=== PATIENT | female | born 1985 | race Caucasian/White ===

== ENCOUNTER 2016-09-06 12:18 | Emergency (ER) | payer OTHER ==
--- NOTE | 2016-09-06 13:18 | UC ---
Throat Pain/Nasal Edwin HPI - HPI Summary HPI Summary: SORE THROAT X 5 DAY, NO FEVER, + NASAL CONGESTION, COUGH HER KIDS WERE DX WITH STREP THROAT RECENTLY - History of Current Complaint Chief Complaint: UCGeneralIllness Stated Complaint: SORE THROAT Time Seen by Provider: 09/06/16 13:12 Hx Obtained From: Patient Hx Last Menstrual Period: DECEMBER 2014, DOES NOT HAVE REG PERIODS-HAS PCOS Onset/Duration: Gradual Onset, Lasting Days - 5, Still Present Severity: Moderate Cough: Nonproductive Associated Signs & Symptoms: Positive: Sinus Discomfort, Nasal Discharge. Negative: FB Sensation, Drooling, Fever, Vomiting - Allergies/Home Medications Allergies/Adverse Reactions: Allergies Allergy/AdvReac Type Severity Reaction Status Date / Time control pills Allergy Severe respiratory Uncoded 09/06/16 13:16 & rash Home Medications: Home Medications Acetaminophen [Acetaminophen Extra Stren] 1,000 mg PO Q6H PRN 09/06/16 [History Confirmed 09/06/16] Cetirizine* [ZyrTEC*] 10 mg PO DAILY 09/06/16 [History Confirmed 09/06/16] metFORMIN* [Glucophage*] 500 mg PO DAILY 09/06/16 [History Confirmed 09/06/16] PMH/Surg Hx/FS Hx/Imm Hx - Additional Past Medical History Additional PMH: HX OF SLE - Surgical History Surgical History: Yes Surgery Procedure, Year, and Place: D & C, pelvic cysts - Family History Known Family History: Positive: Cardiac Disease - Social History Alcohol Use: None Substance Use Type: None Smoking Status (MU): Never Smoked Tobacco - Immunization History Most Recent Influenza Vaccination: June 2016 Review of Systems Constitutional: Fatigue Skin: Negative Eyes: Negative ENT: Sore Throat, Nasal Discharge Respiratory: Cough Cardiovascular: Negative Gastrointestinal: Negative Genitourinary: Negative All Other Systems Reviewed And Are Negative: Yes Physical Exam Triage Information Reviewed: Yes Appearance: Well-Appearing, No Pain Distress, Well-Nourished Vital Signs: Initial Vital Signs Temp 98.2 F 09/06/16 13:12 Pulse 82 09/06/16 13:12 Resp 16 09/06/16 13:12 BP 120/76 09/06/16 13:12 Pulse Ox 99 09/06/16 13:12 Vital Signs Reviewed: Yes Eyes: Positive: Conjunctiva Clear ENT: Positive: Normal ENT inspection, Hearing grossly normal, Pharyngeal erythema, Nasal congestion, Nasal drainage, TMs normal Neck: Positive: Supple, Nontender, No Lymphadenopathy Respiratory: Positive: Chest non-tender, Lungs clear, Normal breath sounds Cardiovascular: Positive: RRR, No Murmur, Pulses Normal Abdominal Exam: Normal Abdomen Description: Positive: Soft Bowel Sounds: Positive: Present Skin Exam: Normal Throat Pain/Nasal Course/Dx - Differential Dx/Diagnosis Provider Diagnoses: PHARYNGITIS Discharge - Discharge Plan Condition: Stable Disposition: HOME Prescriptions: Amoxicillin (*) 875 mg PO BID #20 tab Patient Education Materials: Pharyngitis (ED) Forms: *Work Release Referrals: Yaima Flaherty [Primary Care Provider] - If Needed
[2016-09-06 17:14] VITALS: BP 120/76
== END 2016-09-06 13:20 | disposition home or self-care (01) ==
LOC: UCCORT 12:18
DX: J02.9 Acute pharyngitis, unspecified (principal); R09.81 Nasal congestion; R05 Cough; R53.83 Other fatigue
CPT/HCPCS: 99212; G0463

== ENCOUNTER 2016-10-07 09:27 | Emergency (ER) | payer OTHER ==
[2016-10-07 10:30] VITALS: BP 121/63
--- NOTE | 2016-10-07 11:08 | UC ---
Throat Pain/Nasal Edwin HPI - HPI Summary HPI Summary: Nasal & maxillary sinus congestion with ST, R ear pain/pressure starting about 6 days ago. Hx of sinusitis 1-2 x/year, does not see ENT for this. Is not coughing, not able to blow anything out of nose. Has tried neti pot, antihistamines, decongestants without relief. - History of Current Complaint Chief Complaint: UCRespiratory Stated Complaint: SINUSES Time Seen by Provider: 10/07/16 10:43 Hx Obtained From: Patient Hx Last Menstrual Period: PCOS, 3 months ago ?: No Onset/Duration: Gradual Onset, Lasting Days Severity: Moderate Cough: None Associated Signs & Symptoms: Positive: Sinus Discomfort. Negative: Nasal Discharge - Epiglottits Risk Factors Epiglottis Risk Factors: Negative - Allergies/Home Medications Allergies/Adverse Reactions: Allergies Allergy/AdvReac Type Severity Reaction Status Date / Time control pills Allergy Severe respiratory Uncoded 10/07/16 10:31 & rash Home Medications: Home Medications Phentermine HCl 0.5 tab PO DAILY 10/07/16 [History Confirmed 10/07/16] PMH/Surg Hx/FS Hx/Imm Hx Previously Healthy: No - Pt has lupus - Surgical History Surgical History: None Surgery Procedure, Year, and Place: D & C, pelvic cysts - Family History Known Family History: Positive: Cardiac Disease - Social History Lives: With Family Alcohol Use: None Substance Use Type: None Smoking Status (MU): Never Smoked Tobacco - Immunization History Most Recent Influenza Vaccination: 08/2014 Review of Systems Constitutional: Negative Skin: Negative Eyes: Negative ENT: Other - sinus pain and pressure Respiratory: Negative Cardiovascular: Negative Gastrointestinal: Negative Genitourinary: Negative Motor: Negative Neurovascular: Negative Musculoskeletal: Negative Neurological: Negative Psychological: Negative All Other Systems Reviewed And Are Negative: Yes Physical Exam Triage Information Reviewed: Yes Appearance: Well-Appearing, Obese Vital Signs: Initial Vital Signs Temp 98.3 F 10/07/16 10:27 Pulse 94 10/07/16 10:27 Resp 16 10/07/16 10:27 BP 121/63 10/07/16 10:27 Pulse Ox 95 10/07/16 10:27 Vital Signs Reviewed: Yes Eye Exam: Normal Eyes: Positive: Conjunctiva Clear ENT: Positive: Pharynx normal, Nasal congestion, TMs normal. Negative: Tonsillar swelling, Tonsillar exudate Dental Exam: Normal Neck exam: Normal Neck: Positive: Supple, Nontender, No Lymphadenopathy Respiratory Exam: Normal Respiratory: Positive: Chest non-tender, Lungs clear, Normal breath sounds, No respiratory distress, No accessory muscle use Cardiovascular: Positive: RRR - high 90s on exam, No Murmur Musculoskeletal Exam: Normal Neurological Exam: Normal Psychological Exam: Normal Skin Exam: Normal Throat Pain/Nasal Course/Dx - Differential Dx/Diagnosis Provider Diagnoses: Acute maxillary sinusitis Discharge - Discharge Plan Condition: Stable Disposition: HOME Prescriptions: Azithromyxin TIMOTHY (NF) [Z-Timothy (Zithromax) 250 mg tabs #6] 2 tab PO .TODAY, THEN 1 DAILY #6 tab Patient Education Materials: Sinusitis (ED) Referrals: Yaima Flaherty [Primary Care Provider] - Additional Instructions: Make sure you follow up if you have persistent or worsening symptoms.
== END 2016-10-07 11:08 | disposition home or self-care (01) ==
LOC: UCCORT 09:27
DX: J01.00 Acute maxillary sinusitis, unspecified (principal); R09.81 Nasal congestion; E28.2 Polycystic ovarian syndrome; M32.9 Systemic lupus erythematosus, unspecified; E66.9 Obesity, unspecified; Z88.8 Allergy status to other drugs, medicaments and biological substances
CPT/HCPCS: 99212; G0463

== ENCOUNTER 2019-06-19 09:20 | Emergency (ER) | payer OTHER ==
[2019-06-19 10:09] VITALS: BP 111/48
--- NOTE | 2019-06-19 10:27 | UC ---
Throat Pain/Nasal Edwin HPI - HPI Summary HPI Summary: 34-year-old female who is 4 months presents with 2 week history of nasal congestion, sinus pressure, sore throat, and occasional nonproductive cough. States her symptoms did start improving after about a week but then over the last 4-5 days and started to worsen again. Reports intermittent fevers as high as 101 F. Yesterday developed some right ear pain. Her son is ill with similar symptoms. Has been taking Zyrtec and Mucinex with little relief in symptoms. Denies dysphagia, chest pain, shortness of breath, abdominal pain, nausea, vomiting, or diarrhea. - History of Current Complaint Chief Complaint: UCGeneralIllness Stated Complaint: SINUSES,FEVER,EARS Time Seen by Provider: 06/19/19 10:23 Hx Obtained From: Patient Hx Last Menstrual Period: PCOS, 3 months ago Pain Intensity: 6 - Allergies/Home Medications Allergies/Adverse Reactions: Allergies Allergy/AdvReac Type Severity Reaction Status Date / Time control pills Allergy Severe respiratory Uncoded 06/19/19 10:09 & rash PMH/Surg Hx/FS Hx/Imm Hx Other Endocrine History: PCOS - Surgical History Surgical History: None Surgery Procedure, Year, and Place: D & C, pelvic cysts - Family History Known Family History: Positive: Cardiac Disease - Social History Occupation: Unemployed Lives: With Family Alcohol Use: None Substance Use Type: None Smoking Status (MU): Never Smoked Tobacco - Immunization History Most Recent Influenza Vaccination: 08/2014 Review of Systems All Other Systems Reviewed And Are Negative: Yes Constitutional: Positive: Fever Skin: Negative: Rash Eyes: Negative: Drainage, Eye Redness ENT: Positive: Sore Throat, Ear Ache, Nasal Discharge, Sinus Congestion, Sinus Pain/Tenderness Respiratory: Positive: Cough. Negative: Shortness Of Breath Cardiovascular: Negative: Chest Pain Gastrointestinal: Negative: Abdominal Pain, Vomiting, Diarrhea, Nausea Genitourinary: Positive: Negative Musculoskeletal: Positive: Negative Neurological: Positive: Negative Is Patient Immunocompromised?: No Physical Exam - Summary Physical Exam Summary: GENERAL APPEARANCE: Well developed, well nourished, alert and cooperative, and appears to be in no acute distress. EYES: Conjunctiva clear. No drainage. EARS: External auditory canals and tympanic membranes clear, hearing grossly intact. NOSE: Moderate nasal congestion with mucosal erythema and edema. No nasal discharge. Frontal and maxillary sinus tenderness. THROAT: Pharyngeal cobblestoning. No tonsilar inflammation, swelling, exudate, or lesions. Uvula midline. NECK: Neck supple, non-tender without lymphadenopathy. CARDIAC: Normal S1 and S2. No S3, S4 or murmurs. Rhythm is regular. There is no peripheral edema, cyanosis or pallor. Extremities are warm and well perfused. Capillary refill is less than 2 seconds. Peripheral pulses intact. LUNGS: Clear to auscultation without rales, rhonchi, wheezing or diminished breath sounds. Cough not observed. ABDOMEN: Positive bowel sounds. Soft, nondistended, nontender. No guarding or rebound. No masses or hepatosplenomegally. MUSKULOSKELETAL: ROM intact to all extremities. No joint erythema or tenderness. Normal muscular development. Normal gait. SKIN: Skin normal color, texture and turgor with no lesions or eruptions. Triage Information Reviewed: Yes Vital Signs: Initial Vital Signs Temp 98.8 F 06/19/19 10:04 Pulse 76 06/19/19 10:04 Resp 16 06/19/19 10:04 BP 111/48 06/19/19 10:04 Pulse Ox 100 06/19/19 10:04 Vital Signs Reviewed: Yes Throat Pain/Nasal Course/Dx - Course Course Of Treatment: 34-year-old female who is 4 months presents with 2 week history of nasal congestion, sinus pressure, sore throat, and occasional nonproductive cough. States her symptoms did start improving after about a week but then over the last 4-5 days and started to worsen again. Reports intermittent fevers as high as 101 F. Yesterday developed some right ear pain. Her son is ill with similar symptoms. Has been taking Zyrtec and Mucinex with little relief in symptoms. Denies dysphagia, chest pain, shortness of breath, abdominal pain, nausea, vomiting, or diarrhea. Afebrile. Vital signs stable. Patient had moderate nasal congestion with mucosal erythema and edema, frontal and maxillary sinus tenderness, normal TMs, pharyngeal cobblestoning without tonsillar swelling or exudate, no cervical lymphadenopathy, clear bilateral breath sounds, and otherwise unremarkable exam. Based on her history of improving followed by worsening of symptoms as well as the duration of her symptoms I'm concerned she may be developing a secondary bacterial infection and will treat her with Augmentin and 875 mg twice a day 10 days as well as recommend symptomatic treatment. She is to follow up with her primary care provider in 3-5 days if symptoms are not improving. Anticipatory warning symptoms reviewed with the patient. Verbalizes understanding and agrees with Plan of Care. - Differential Dx/Diagnosis Differential Diagnosis/HQI/PQRI: Influenza, Mononucleosis, Otitis Media, Pharyngitis, Sinusitis, Tonsillitis, URI Provider Diagnosis: Acute sinusitis Discharge ED - Sign-Out/Discharge Documenting (check all that apply): Patient Departure All imaging exams completed and their final reports reviewed: No Studies - Discharge Plan Condition: Stable Disposition: HOME Prescriptions: Amoxicillin/Clavulanate TAB* [Augmentin TAB 875*] 875 mg PO BID #20 tab Fluticasone NASAL SPRAY 50MCG* [Flonase NASAL SPRAY 50MCG*] 2 spray BOTH NARES DAILY #1 btl Patient Education Materials: Sinusitis (ED) Forms: *Work Release Referrals: Yaima Flaherty [Primary Care Provider] - 3 Days Additional Instructions: Your history and exam are consistent with a sinus infection. Considering the duration of your symptoms I am concerned that he may have developed a secondary bacterial infection we'll start you on an antibiotic. Start Augmentin 875 mg 1 tablet twice daily for 10 days. Take with food to avoid upset stomach. Be sure to finish the entire course even if feeling better. Drink plenty of fluids to avoid dehydration especially if you are running any fever. Use a saline rinse kit such as Neti Pot or NeilMed at least twice a day to help thin secretions and promote drainage of the sinuses. Use fluticasone (Flonase) nasal spray 2 sprays each nostril once daily. Take over the counter acetaminophen (Tylenol) according to directions as needed for pain or fever. Follow up with your primary care provider in 3-5 days if symptoms persist. Seek immediate medical attention in the emergency room if you have fever greater than 100.5 F despite taking acetaminophen or ibuprofen, have chest pain , difficulty breathing, are unable to swallow, or have any worsening of symptoms. - Billing Disposition and Condition Condition: STABLE Disposition: Home
== END 2019-06-19 11:00 | disposition home or self-care (01) ==
LOC: UCCORT 09:20
DX: O99.512 Diseases of the respiratory system complicating pregnancy, second trimester (principal); O99.282 Endocrine, nutritional and metabolic diseases complicating pregnancy, second trimester; J01.90 Acute sinusitis, unspecified; E28.2 Polycystic ovarian syndrome; Z3A.16 16 weeks gestation of pregnancy; Z88.8 Allergy status to other drugs, medicaments and biological substances
CPT/HCPCS: 99212; G0463

== ENCOUNTER 2019-08-25 10:56 | Emergency (ER) | payer OTHER ==
[2019-08-25 11:20] VITALS: BP 128/53
--- NOTE | 2019-08-25 11:38 | UC ---
Abdominal Pain Female HPI - HPI Summary HPI Summary: Awoke yesterday at midnight with vomiting. Diarrhea started later. Feeling dehydrated. Dry heaves and watery diarrhea, no blood or mucus in the diarrhea. Children diagnosed with Larose viral infection. - History of Current Complaint Chief Complaint: UCGeneralIllness Stated Complaint: VOMITING DIARRHEA Time Seen by Provider: 08/25/19 11:29 Hx Obtained From: Patient Hx Last Menstrual Period: PCOS, 3 months ago ?: No Onset/Duration: Sudden Onset, Lasting Days - 2, Still Present Timing: Constant Severity Initially: Moderate Severity Currently: Moderate Pain Intensity: 7 Location: Diffuse Radiates: No Character: Cramping, Sharp Aggravating Factor(s): Food Alleviating Factor(s): NPO Associated Signs and Symptoms: Positive: Cough, Nausea, Vomiting, Diarrhea. Negative: Blood in Stool Allergies/Adverse Reactions: Allergies Allergy/AdvReac Type Severity Reaction Status Date / Time control pills Allergy Severe respiratory Uncoded 08/25/19 11:20 & rash PMH/Surg Hx/FS Hx/Imm Hx - Additional Past Medical History Additional PMH: Allergies Other Endocrine History: PCOS Other Respiratory History: Allergies - Surgical History Surgical History: None Surgery Procedure, Year, and Place: D & C, pelvic cysts - Family History Known Family History: Positive: Cardiac Disease - Social History Occupation: Employed Full-time Lives: With Family Alcohol Use: None Substance Use Type: None Smoking Status (MU): Never Smoked Tobacco - Immunization History Most Recent Influenza Vaccination: 08/2014 Review of Systems All Other Systems Reviewed And Are Negative: Yes Constitutional: Positive: Chills, Fatigue Respiratory: Positive: Shortness Of Breath, Cough Gastrointestinal: Positive: Abdominal Pain - cramping pain with eating., Vomiting, Diarrhea Neurological: Positive: Headache - starting to get a migraine Physical Exam Triage Information Reviewed: Yes Appearance: No Pain Distress, Well-Nourished, Ill-Appearing Vital Signs: Initial Vital Signs Temp 98.6 F 08/25/19 11:15 Pulse 91 08/25/19 11:15 Resp 18 08/25/19 11:15 BP 128/53 08/25/19 11:15 Pulse Ox 99 08/25/19 11:15 Vital Signs Reviewed: Yes Eyes: Positive: Conjunctiva Clear ENT: Positive: TMs normal. Negative: Pharynx normal - mucus membranes dry Neck exam: Normal Respiratory: Positive: Wheezing - expiratory wheeze with coughing. Cardiovascular: Positive: RRR, No Murmur Abdomen Description: Positive: No Organomegaly, Soft. Negative: McBurney's Point Tenderness, Peritoneal Signs Bowel Sounds: Positive: Present Musculoskeletal Exam: Normal Neurological Exam: Normal Psychological Exam: Normal Skin Exam: Normal Re-Evaluation - Re-Evaluation First Eval Re-Evaluation Time: 12:38 Change: Improved - Feeling much better. Nausea and headaches are better. Abd Pain Female Course/Dx - Differential Dx/Diagnosis Differential Diagnosis: Appendicitis, Diverticulitis, Ectopic , Pancreatitis Provider Diagnosis: Enteritis, Bronchospasm, acute Discharge ED - Sign-Out/Discharge Documenting (check all that apply): Patient Departure All imaging exams completed and their final reports reviewed: No Studies - Discharge Plan Condition: Stable Disposition: HOME Prescriptions: Ondansetron ODT TAB* [Zofran 4 MG Odt TAB*] 4 mg PO Q6H PRN #20 tab.odt PRN Reason: Nausea/Vomiting predniSONE 20 mg TAB [Deltasone 20 MG TAB*] 60 mg PO DAILY #18 tab Patient Education Materials: Gastroenteritis (ED), Bronchospasm (ED) Forms: *Work Release Referrals: Yaima Flaherty [Primary Care Provider] - - Billing Disposition and Condition Condition: STABLE Disposition: Home
[2019-08-25] MEDS ORDERED: Ondansetron INJ* 2 MG/ML VIAL IV ONE (11:39)
[2019-08-25] MEDS ORDERED: NS 0.9% 1000 ML** 1,000 ML IV ONE (11:39)
== END 2019-08-25 13:03 | disposition home or self-care (01) ==
LOC: UCCORT 10:56
DX: K52.9 Noninfective gastroenteritis and colitis, unspecified (principal); J98.01 Acute bronchospasm; R51 Headache; Z88.8 Allergy status to other drugs, medicaments and biological substances
CPT/HCPCS: 96360; 96375; 99212; G0463; J2405

== ENCOUNTER 2019-08-29 13:23 | Emergency (ER) | payer OTHER ==
[2019-08-29 13:44] VITALS: BP 118/62
--- NOTE | 2019-08-29 14:16 | UC ---
Headache HPI - HPI Summary HPI Summary: Pt presents with c/o generalized malaise and "migraine that just won't go away" X 7 days. Pt is 6 months and was seen here on 08/25/19 and given zofran and prednisone. Pt states that zofran is helping with nausea but prednisone makes her "jittery". Pt states that she has not felt well "this entire ". - History Of Current Complaint Chief Complaint: UCGeneralIllness Stated Complaint: SINUS WATERY EYES MIGRAINES Time Seen by Provider: 08/29/19 13:54 Hx Obtained From: Patient Hx Last Menstrual Period: PCOS, ?: Yes Onset/Duration: Gradual Onset, Lasting Days, Still Present Onset Of Symptoms: Gradual, Still Present Initially Headache Was: Moderate Currently Pain Is: Severe Pain Intensity: 9 Timing: Constant Character: Dull, Throbbing, Pressure, Migraine Location of Headache: Diffuse Aggravating Factor(s): Bright Lights Allevating Factor(s): Nothing Associated Signs And Symptoms: Positive: Sinus Pressure - Risk Factors SAH Risk Factors: Negative Meningitis Risk Factors: Negative SDH Risk Factors: Negative Temporal Arteritis Risk Factors: Female - Allergies/Home Medications Allergies/Adverse Reactions: Allergies Allergy/AdvReac Type Severity Reaction Status Date / Time control pills Allergy Severe respiratory Uncoded 08/29/19 13:38 & rash Home Medications: Home Medications Aspirin/Acetaminophen/Caffeine [Excedrin Migraine Caplet] 1 each PO SEE INSTRUCTIONS PRN 08/29/19 [History Confirmed 08/29/19] Cholecalciferol TAB* [Vitamin D TAB*] 1,000 unit PO DAILY 08/29/19 [History Confirmed 08/29/19] Cyanocobalamin TAB* [Vitamin B12 TAB*] 500 mcg PO DAILY 08/29/19 [History Confirmed 08/29/19] Ferrous Sulfate TAB* 325 mg PO DAILY 08/29/19 [History Confirmed 08/29/19] Vitamin TAB* 1 tab PO DAILY 08/29/19 [History Confirmed 08/29/19] metFORMIN* [Glucophage 500 MG TAB *] 500 mg PO DAILY 08/29/19 [History Confirmed 08/29/19] PMH/Surg Hx/FS Hx/Imm Hx Previously Healthy: Yes - Surgical History Surgical History: Yes Surgery Procedure, Year, and Place: D & C, pelvic cysts - Family History Known Family History: Positive: Cardiac Disease - Social History Occupation: Employed Full-time Lives: With Family Alcohol Use: None Substance Use Type: None Smoking Status (MU): Never Smoked Tobacco Have You Smoked in the Last Year: No - Immunization History Most Recent Influenza Vaccination: 08/2014 Vaccination Up to Date: Yes Review of Systems All Other Systems Reviewed And Are Negative: Yes Constitutional: Positive: Fatigue Skin: Positive: Negative Eyes: Positive: Photophobia ENT: Positive: Sinus Pain/Tenderness Respiratory: Positive: Negative Cardiovascular: Positive: Negative Gastrointestinal: Positive: Negative Genitourinary: Positive: Negative Motor: Positive: Negative Neurovascular: Positive: Negative Musculoskeletal: Positive: Negative Neurological: Positive: Headache Psychological: Positive: Negative Is Patient Immunocompromised?: No Physical Exam - Summary Physical Exam Summary: Pt states baby is very active and moving. Triage Information Reviewed: Yes Appearance: Ill-Appearing, Pain Distress Vital Signs: Initial Vital Signs Temp 98.3 F 08/29/19 13:33 Pulse 88 08/29/19 13:33 Resp 18 08/29/19 13:33 BP 118/62 08/29/19 13:33 Pulse Ox 98 08/29/19 13:33 Vital Signs Reviewed: Yes Eye Exam: Normal ENT: Positive: Sinus tenderness Dental Exam: Normal Neck exam: Normal Respiratory Exam: Normal Cardiovascular Exam: Normal Musculoskeletal Exam: Normal Neurological Exam: Normal Psychological Exam: Normal Skin Exam: Normal Headache Course/Dx - Course Course Of Treatment: Pt was advised to try unisom to help pt sleep. Pt was instructed to f/u with OB as soon as possible and instructed to go directly to the closest emergency room if symptoms do not improve or worsen. - Differential Dx/Diagnosis Differential Diagnosis/HQI/PQRI: CVA, TIA, Migraine, Sinus Headache, Tension Headache Provider Diagnosis: Headache Discharge ED - Sign-Out/Discharge Documenting (check all that apply): Patient Departure All imaging exams completed and their final reports reviewed: No Studies - Discharge Plan Condition: Stable Disposition: HOME Patient Education Materials: General Headache (ED), Warm Compress or Soak (ED) Referrals: Tj Webb MD [Medical Doctor] - As Soon As Possible Yaima Flaehrty [Primary Care Provider] - If Needed Additional Instructions: Please try Unisom, Doxylamine Succinate, to help you sleep. Please make sure you are well hydrated and eating a well balanced diet. - Billing Disposition and Condition Condition: STABLE Disposition: Home - Attestation Statements Provider Attestation: I was available for consult. This patient was seen by the ASA[facility]. The patient was not presented to, seen by, or examined by me. -Jeffrey
== END 2019-08-29 14:25 | disposition home or self-care (01) ==
LOC: UCCORT 13:23
DX: O99.89 Other specified diseases and conditions complicating pregnancy, childbirth and the puerperium (principal); R51 Headache; R53.83 Other fatigue; Z88.8 Allergy status to other drugs, medicaments and biological substances; Z3A.00 Weeks of gestation of pregnancy not specified
CPT/HCPCS: 81003; 99212; G0463

== ENCOUNTER 2019-10-28 10:07 | Emergency (ER) | payer OTHER ==
[2019-10-28 10:51] VITALS: BP 143/67
--- NOTE | 2019-10-28 11:22 | UC ---
Ear Complaint HPI - HPI Summary HPI Summary: Pt presents with c/o nasal congestion, cough and right ear pain X 4 days. Pt is 8 months - History of Current Complaint Chief Complaint: UCEar Stated Complaint: R EAR PAIN Time Seen by Provider: 10/28/19 10:53 Hx Obtained From: Patient Hx Last Menstrual Period: PCOS, ?: Yes Onset/Duration: Sudden Onset, Lasting Days Severity Initially: Mild Severity Currently: Moderate Pain Intensity: 4 Associated Signs/Symptoms: Positive: URI Symptoms - Allergies/Home Medications Allergies/Adverse Reactions: Allergies Allergy/AdvReac Type Severity Reaction Status Date / Time control pills Allergy Severe respiratory Uncoded 10/28/19 10:48 & rash Home Medications: Home Medications Cetirizine* [ZyrTEC 10 MG TAB*] 10 mg PO DAILY 09/06/16 [History Confirmed 10/27] Cholecalciferol TAB* [Vitamin D TAB*] 1,000 unit PO DAILY 08/29/19 [History Confirmed 10/28/19] Cyanocobalamin TAB* [Vitamin B12 TAB*] 500 mcg PO DAILY 08/29/19 [History Confirmed 10/28/19] Ferrous Sulfate TAB* 325 mg PO DAILY 08/29/19 [History Confirmed 10/28/19] Vitamin TAB* 1 tab PO DAILY 08/29/19 [History Confirmed 10/28/19] metFORMIN* [Glucophage 500 MG TAB *] 500 mg PO DAILY 08/29/19 [History Confirmed 10/28/19] Cyclobenzaprine TAB* [Flexeril 10 MG TAB*] 10 mg PO BID PRN 10/28/19 [History Confirmed 10/28/19] guaiFENesin [Mucinex] 600 mg PO Q12H #14 tab.er.12h 10/28/19 [Rx] PMH/Surg Hx/FS Hx/Imm Hx Previously Healthy: Yes Endocrine History: Diabetes - Surgical History Surgical History: Yes Surgery Procedure, Year, and Place: D & C, pelvic cysts - Family History Known Family History: Positive: Cardiac Disease - Social History Occupation: Employed Full-time Lives: With Family Alcohol Use: None Substance Use Type: None Smoking Status (MU): Never Smoked Tobacco Have You Smoked in the Last Year: No - Immunization History Most Recent Influenza Vaccination: 08/2014 Vaccination Up to Date: Yes Review of Systems All Other Systems Reviewed And Are Negative: Yes Constitutional: Positive: Chills, Fatigue Skin: Positive: Negative Eyes: Positive: Negative ENT: Positive: Sinus Congestion Respiratory: Positive: Cough Cardiovascular: Positive: Negative Gastrointestinal: Positive: Negative Genitourinary: Positive: Negative Motor: Positive: Negative Neurovascular: Positive: Negative Musculoskeletal: Positive: Myalgia Neurological/Mental Status: Positive: Headache Psychological: Positive: Negative Is Patient Immunocompromised?: No Physical Exam Triage Information Reviewed: Yes Appearance: Ill-Appearing Vital Signs: Initial Vital Signs Temp 97.9 F 10/28/19 10:49 Pulse 98 10/28/19 10:49 Resp 18 10/28/19 10:49 BP 143/67 10/28/19 10:49 Pulse Ox 99 10/28/19 10:49 Vital Signs Reviewed: Yes Eye Exam: Normal ENT: Positive: Nasal congestion, TM bulging Dental Exam: Normal Neck exam: Normal Neck: Positive: Supple Respiratory Exam: Normal Respiratory: Positive: Normal breath sounds, No respiratory distress Cardiovascular Exam: Normal Musculoskeletal Exam: Normal Neurological Exam: Normal Psychological Exam: Normal Skin Exam: Normal Ear Complaint Course/Dx - Differential Dx/Diagnosis Differential Diagnosis/HQI/PQRI: Otitis Externa, Otitis Media, URI Provider Diagnosis: Viral syndrome Discharge ED - Sign-Out/Discharge Documenting (check all that apply): Patient Departure All imaging exams completed and their final reports reviewed: No Studies - Discharge Plan Condition: Stable Disposition: HOME Prescriptions: guaiFENesin [Mucinex] 600 mg PO Q12H #14 tab.er.12h Patient Education Materials: Viral Syndrome (ED) Referrals: Yaima Flaherty [Primary Care Provider] - If Needed - Billing Disposition and Condition Condition: STABLE Disposition: Home - Attestation Statements Provider Attestation: This patient was not seen by me. I was available for consult. Chart reviewed. IVETT
== END 2019-10-28 11:34 | disposition home or self-care (01) ==
LOC: UCCORT 10:07
DX: O98.519 Other viral diseases complicating pregnancy, unspecified trimester (principal); B34.9 Viral infection, unspecified; O99.89 Other specified diseases and conditions complicating pregnancy, childbirth and the puerperium; R09.81 Nasal congestion; O24.919 Unspecified diabetes mellitus in pregnancy, unspecified trimester; R05 Cough; H92.01 Otalgia, right ear; R53.83 Other fatigue; R51 Headache; M79.10 Myalgia, unspecified site; Z88.8 Allergy status to other drugs, medicaments and biological substances; Z79.84 Long term (current) use of oral hypoglycemic drugs
CPT/HCPCS: 99212; G0463